=== PATIENT | male | born 1965 | race Caucasian/White ===

== ENCOUNTER 2019-10-04 11:34 | Emergency (ER) | payer OTHER ==
[~2019-10-04] VITALS: Ht 182.9 cm; Wt 86.4 kg
--- NOTE | 2019-10-04 11:35 | NUR ---
PT BIB [facility] FROM [facility] WHERE HE SUFFERED A SYNCOPAL EPISODE WHILE ON THE ELLIPTICAL. PT HAS 5-6CM LAC ON POSTERIOR HEAD, BLEEDING CONTROLLED PER EMS, PT WAS A&OX4, [facility] 15 WHEN THEY ARRIVED, WAS FOUND TO BE IN AFIB WITH RVR (WHICH PT HAS HX OF). PT IS VISITING FROM [place] FOR 36 HOURS. REPORTS HE DID METH THIS MORNING AROUND 0500 (STATES IT'S THE FIRST TIME IN 4 YEARS HE'S USED). PT HAS HX OF CARDIOVERSION AND ABLATION. PT STATES HE STARTED FLECAINIDE ABOUT 4 DAYS AGO. PT ALSO HAS HX OF DM II. PT WAS GIVEN 300ML NS EN ROUTE. ARRIVES TO ED A&OX4, STABLE BUT HR AFIB 170s. EKG DONE IMMEDIATELY AND SHOWN TO ERP. Addendum: 10/04/19 at 1437 by NATALYA PT STATES HE HAS AN APPT FOR A CARDIOVERSION NEXT WEEK.
--- NOTE | 2019-10-04 11:50 | NUR ---
ERP AT BS TO SEE PT.
[2019-10-04] MEDS ORDERED: LORazepam 2 MG/ML, 1ML IVPush ONE ×2 (12:00→14:00)
[2019-10-04] MEDS ORDERED: DILTIAZEM 5 MG/ML, 5ML IV ONE (12:00)
[2019-10-04] MEDS ORDERED: LORazepam 2 MG/ML, 1ML ONE (12:05)
[2019-10-04] MEDS ORDERED: LIDOCAINE-MPF 1%, 5ML ONE (12:05)
[2019-10-04 12:25] LABS: BASOPHILS # (AUTO) 0.04 x10^3/uL (0-0.1); BASOPHILS % (AUTO) 0 % (0-1); EOSINOPHILS # (AUTO) 0.02 x10^3/uL (0-0.4); EOSINOPHILS % (AUTO) 0 % (1-7); LYMPHOCYTES # (AUTO) 1.24 x10^3/uL (1-3.4); LYMPHOCYTES % (AUTO) 12 % (22-44); MD NO; MEAN CORPUSCULAR HEMOGLOBIN 33.8 pg (27.5-34.5); MEAN CORPUSCULAR HGB CONC 34.6 g/dL (33.2-36.2); MEAN CORPUSCULAR VOLUME 97.7 fL (81-97); MEAN PLATELET VOLUME 8.9 fL (7.4-10.4); MONOCYTES % (AUTO) 4 % (2-9); NEUTROPHILS # (AUTO) 8.69 x10^3/uL (1.8-6.8); NEUTROPHILS % (AUTO) 84 % (42-75); PLATELET COUNT 211 x10^3/uL (130-400); RED BLOOD COUNT 4.27 x10^6/uL (4.38-5.82); RED CELL DISTRIBUTION WIDTH 14.4 % (9.4-14.8)
--- NOTE | 2019-10-04 12:28 | NUR ---
PT MEDICATED WITH ATIVAN AND CARDIZEM PER ORDERS. HR 140s AT THIS TIME. L POSTERIOR HEAD LAC WAS IRRIGATED BY PREMIUM CARD CANCELLATION CLERK. PT REMAINS A&OX4, STABLE.
[2019-10-04] MEDS ORDERED: LIDOCAINE 1%, 10ML INFIL ONE (12:30)
[2019-10-04 12:34] LABS: ALBUMIN 4.3 g/dL (3.4-5.0); ANION GAP 6 mmol/L (5-15); CALCIUM 8.7 mg/dL (8.5-10.1); CHLORIDE 106 mmol/L (98-107)
[2019-10-04 12:39] LABS: ALANINE AMINOTRANSFERASE 73 U/L (12-78); ALKALINE PHOSPHATASE 81 U/L (45-117); BILIRUBIN,TOTAL 0.5 mg/dL (0.2-1.0); CREATININE 1.28 mg/dL (0.7-1.3); TOTAL PROTEIN 8.2 g/dL (6.4-8.2); TROPONIN I < 0.015 ng/mL (0.000-0.045)
[2019-10-04] MEDS ORDERED: DILTIAZEM 125 MG in SODIUM CHLORIDE 0.9% 100 ML IV ONE (12:47)
[2019-10-04 12:52] LABS: INTERNATIONAL NORMALIZED RATIO 1.07 (0.93-1.1); PROTHROMBIN TIME 11.3 Seconds (9.6-11.5)
--- NOTE | 2019-10-04 13:09 | NUR ---
HR DOWN TO 120s-130s AT THIS TIME. AWAITING CARDIZEM GTT FROM PHARMACY. PT STATES HE FEELS BETTER. PT AMBULATED TO BR WITHOUT DIFFICULTY.
--- NOTE | 2019-10-04 13:22 | NUR ---
L POSTERIOR HEAD WOUND NUMBED BY MED STUDENT. CARDIZEM GTT STARTED PER ORDERS. PT UNDERSTANDS POC.
--- NOTE | 2019-10-04 13:39 | NUR ---
L POSTERIOR HEAD LAC STAPLED BY ERP. PT TOLERATED WELL. HR REMAINS 120s-130s, NO OTHER SIGNS OF DISTRESS.
--- NOTE | 2019-10-04 13:50 | NUR ---
PT'S HR 130s-140s. CARDIZEM GTT INCREASED TO 15ML/HR PER DR. EL. RV'WD POC WITH PT.
--- NOTE | 2019-10-04 14:15 | NUR ---
PT MEDICATED WITH ANOTHER 1MG ATIVAN PER ORDERS. 500ML BOLUS INFUSING. CARDIZEM GTT STILL INFUSING AT 15ML/HR. PT UNDERSTANDS POC.
[2019-10-04] MEDS ORDERED: SODIUM CHLORIDE 0.9%, 500ML IVBOLUS ONE (14:30)
--- NOTE | 2019-10-04 14:32 | NUR ---
PT AMBULATED TO BR AGAIN WITHOUT DIFFICULTY.
[2019-10-04 14:37] VITALS: BP 134/94
[2019-10-04] MEDS ORDERED: NEOSPORIN OINT. PKT 1 PACKET ONE (16:00)
--- NOTE | 2019-10-04 16:00 | NUR ---
ERP AWARE OF PT VS AND WAS IN FOR RECHECK. D/C INSTRUCTIONS & F/U APPT RV'WD WITH PT. PT STATES HE HAS AN APPT WITH HIS CHAINER NEXT WEEK. INSTRUCTED TO HAVE ROSAS REMOVED IN 7 DAYS. ABX OINTMENT APPLIED TO HEAD WOUND, INSTRUCTED ON WOUND CARE. PT AMBULATED OUT OF ED WITHOUT DIFFICULTY, STATES HE WILL TAKE AN UBER BACK TO HIS HOTEL.
== END 2019-10-04 16:09 | disposition home or self-care (01) ==
LOC: ED 16:00
DX: S01.01XA Laceration without foreign body of scalp, initial encounter (principal); I48.0 Paroxysmal atrial fibrillation; F15.10 Other stimulant abuse, uncomplicated; X58.XXXA Exposure to other specified factors, initial encounter; Y93.89 Activity, other specified; Y92.89 Other specified places as the place of occurrence of the external cause; Y99.8 Other external cause status
CPT/HCPCS: 12032; 36415; 70450; 71045; 80053; 84484; 85025; 85610; 85730; 93005; 96365; 96366; 96375; 96376; 99285; J2060; J3490; J7040